=== PATIENT | male | born 1970 | race Caucasian/White ===

== ENCOUNTER → 2022-04-27 14:27 | Outpatient (BNVA) | payer MEDICAID, SELFPAY | PROVIDERS: Referring Provider Emergency Medicine; Visit Provider Nurse Practitioner Family | DX: M25.521 Pain in right elbow (principal); M62.58 Muscle wasting and atrophy, not elsewhere classified, other site | CPT/HCPCS: 73030; 73070; 99214 ==

== ENCOUNTER → 2022-05-30 12:52 | Outpatient (BNVA) | payer MEDICAID, SELFPAY | PROVIDERS: Visit Provider Specialist | DX: G56.21 Lesion of ulnar nerve, right upper limb (principal) | CPT/HCPCS: 95908; 95910 ==

== ENCOUNTER → 2022-06-14 11:00 | Outpatient (BNVA) | payer MEDICAID, SELFPAY | PROVIDERS: Visit Provider Nurse Practitioner Family | DX: G56.21 Lesion of ulnar nerve, right upper limb (principal); M62.58 Muscle wasting and atrophy, not elsewhere classified, other site | CPT/HCPCS: 99214 ==

== ENCOUNTER → 2023-05-05 10:37 | Outpatient (BNVA) | payer MEDICAID, SELFPAY | PROVIDERS: Visit Provider Specialist | DX: G54.0 Brachial plexus disorders (principal); G56.21 Lesion of ulnar nerve, right upper limb | CPT/HCPCS: 36415; 83036; 85651; 86160; 86162; 86235; 86255; 86376; 86617; 99205 ==

== ENCOUNTER 2023-06-14 12:09 | Outpatient (CLI) | payer MEDICAID, SELFPAY ==
--- NOTE | 2023-06-14 13:00 | MR_ITS ---
WS: [id number] MR CERVICAL SPINE WO/W COMPARISON: None. HISTORY: G54.0 - Brachial plexus disorders TECHNIQUE: Sagittal T1, T2 and T2 inversion recovery; axial T2, T2 gradient and fiesta. Post gadolini um imaging with fat saturation technique. FINDINGS:Straightening of the normal cervical lordosis. No high grade central canal narrowing. Cord s ignal is normal. Mild disc bulging worse at C4-C5 C5-C6 and C6-C7. C2-3: Mild facet arthropathy. Spinal canal and foramen are patent. C3-4: Mild facet arthropathy. Mild LEFT greater than RIGHT bony foraminal narrowing. Spinal canal is patent. C4-5: Mild disc osteophyte complex with endplate ridging. Slight effacement of the ventral thecal sac . Moderate bilateral bony foraminal narrowing. Mild facet arthropathy. Mild central canal stenosis. C5-6: Disc osteophyte complex with endplate ridging. Slight effacement of the ventral thecal sac. Mod erate facet arthropathy. Moderate to severe bilateral bony foraminal narrowing RIGHT greater than LEF T. Uncovertebral joint hypertrophy. Mild central canal stenosis. C6-7: Disc osteophyte complex with endplate ridging. Moderate to severe bilateral bony foraminal narr owing. Moderate facet arthropathy. Uncovertebral joint hypertrophy. Spinal canal is patent. C7-T1: Mild LEFT and no significant RIGHT foraminal narrowing. Spinal canal is patent. No abnormal gadolinium enhancement. No enhancing lesions within the cervical cord. IMPRESSION: 1. Straightening of the normal cervical doses with moderate spondylitic changes. Disc bulging worse at C4-C6. 2. No suspicious lesions within the cervical cord. No enhancing lesions. 3. Multilevel moderate to severe bony foraminal narrowing worse at bilateral C4-5 worse on the RIGHT , bilateral C5-6 worse on the RIGHT, and bilateral C6-7. 4. Moderate facet arthropathy C4-C5 and C5-C6. 5. Mild central canal stenosis C4-C5 and C5-C6.
[2023-06-14] MEDS: gadobenate dimeglumine 20 mL vial IV (13:14)
== END 2023-06-14 12:10 | disposition home or self-care (01) ==
LOC: RAD 12:10
PROVIDERS: Visit Provider Specialist
DX: M48.02 Spinal stenosis, cervical region (principal); M47.812 Spondylosis without myelopathy or radiculopathy, cervical region
CPT/HCPCS: 72156; A9577

== ENCOUNTER → 2023-07-20 14:08 | Outpatient (BNVA) | payer MEDICAID, SELFPAY | PROVIDERS: Referring Provider Specialist; Visit Provider Orthopaedic Surgery | DX: M54.2 Cervicalgia (principal); M62.58 Muscle wasting and atrophy, not elsewhere classified, other site; M54.9 Dorsalgia, unspecified | CPT/HCPCS: 72050; 72072; 99204 ==